=== PATIENT | male | born 1975 ===

== ENCOUNTER 2023-12-17 19:02 | Emergency (ER) | payer OTHER ==
[~2023-12-17] VITALS: Ht 172.7 cm; Wt 68.0 kg
[2023-12-17] MEDS ORDERED: DOXYCYCLINE HYCLATE 100 MG/CAP PO ONE (19:55)
[2023-12-17] MEDS ORDERED: DICLOFENAC SODIUM 75 MG/TAB PO ONE (19:55)
[2023-12-17] MEDS ORDERED: ACETAMINOPHEN 500 MG TAB PO ONE (19:55)
[2023-12-17] MEDS ORDERED: VIBRAMYCIN100 M2 PO (19:57)
[2023-12-17 20:39] VITALS: BP 141/97
== END 2023-12-17 20:39 | disposition home or self-care (01) | DRG 607 ==
LOC: ED 19:02
DX: L73.9 Follicular disorder, unspecified (principal); L73.2 Hidradenitis suppurativa